=== PATIENT | female | born 1960 | race Two or more races ===

== ENCOUNTER 2017-03-28 08:35 | Emergency (ER) | payer MEDICAID ==
[~2017-03-28] VITALS: Ht 167.6 cm; Wt 149.7 kg
[2017-03-28 08:59] VITALS: BP 139/102
[2017-03-28] MEDS ORDERED: KETOROLAC TROMETH 60MG/2ML VIAL IM ONE (09:15)
== END 2017-03-28 09:59 | disposition home or self-care (01) ==
LOC: ER 08:35
DX: M17.11 Unilateral primary osteoarthritis, right knee (principal); E66.01 Morbid (severe) obesity due to excess calories; Z68.43 Body mass index [BMI] 50.0-59.9, adult; E11.9 Type 2 diabetes mellitus without complications; I10 Essential (primary) hypertension; Z88.0 Allergy status to penicillin
CPT/HCPCS: 96372; 99283; J1885

== ENCOUNTER 2017-11-07 19:22 | Emergency (ER) | payer MEDICAID ==
[~2017-11-07] VITALS: Ht 167.6 cm; Wt 136.1 kg
[2017-11-07 19:30] VITALS: BP 120/72
[2017-11-07] MEDS ORDERED: KETOROLAC TROMETH 60MG/2ML VIAL IM ONE (22:15)
[2017-11-07] MEDS ORDERED: GABAPENTIN 100 MG CAP PO ONE (23:30)
[2017-11-07] MEDS ORDERED: ACETAMINOPHEN/CODEINE#3 (300/30mg) TAB PO ONE (23:30)
== END 2017-11-07 23:25 | disposition home or self-care (01) ==
LOC: ER 19:22
DX: S93.401A Sprain of unspecified ligament of right ankle, initial encounter (principal); S83.92XA Sprain of unspecified site of left knee, initial encounter; S83.91XA Sprain of unspecified site of right knee, initial encounter; E11.9 Type 2 diabetes mellitus without complications; I10 Essential (primary) hypertension; Z88.0 Allergy status to penicillin; W19.XXXA Unspecified fall, initial encounter; Y93.01 Activity, walking, marching and hiking; Y92.89 Other specified places as the place of occurrence of the external cause; Y99.8 Other external cause status
CPT/HCPCS: 73562; 73610; 73630; 96372; 99284; J1885

== ENCOUNTER 2018-08-05 20:39 | Emergency (ER) | payer MEDICAID ==
[~2018-08-05] VITALS: Ht 167.6 cm; Wt 169.2 kg
[2018-08-05 21:19] VITALS: BP 129/93
[2018-08-05 21:57] LABS: Basophils # (auto) 0 uL; Basophils % (auto) 0.4 % (0.0-2.0); Eosinophils # (auto) 0.1 uL; Eosinophils % (auto) 2.3 % (0.0-7.0); Hemoglobin 14.8 g/dL (12.2-16.2); Lymphocytes # (auto) 1.7 uL; Lymphocytes % (auto) 26.9 % (10.0-50.0); Mean Corpuscular Hemoglobin 29.4 pg (28.0-32.0); Mean Corpuscular Hgb Conc. 34.4 g/dL (32.0-36.0); Mean Corpuscular Volume 85.5 fL (80.0-100.0); Monocytes # (auto) 0.5 uL; Monocytes % (auto) 8.9 % (0.0-12.0); Neutrophils # (auto) 3.8 uL; Neutrophils % (auto) 61.5 % (37.0-80.0); Nucleated Red Blood Cells % 0.1 %; Platelet Count (auto) 122 10^3/uL (140-450); Red Blood Cells 5.03 10^6/uL (4.0-5.20); Red Cell Distribution Width 15.6 % (11.8-14.3); White Blood Cell 6.2 10^3/uL (4.4-10.8)
[2018-08-05 22:10] LABS: Albumin 3.4 g/dL (3.4-5.0); BUN/Creatinine Ratio 13.8; Calcium 9.2 mg/dL (8.5-10.1); Potassium 3.3 mmol/L (3.5-5.1)
[2018-08-05 22:14] LABS: Bilirubin, Total 0.6 mg/dL (0.2-1.0); Total Protein 7.2 g/dL (6.4-8.2)
== END 2018-08-06 00:29 | disposition left against medical advice (07) ==
LOC: ER 20:41
DX: R73.9 Hyperglycemia, unspecified (principal); Z53.21 Procedure and treatment not carried out due to patient leaving prior to being seen by health care provider
CPT/HCPCS: 36415; 80053; 85025

== ENCOUNTER 2018-08-07 16:54 | Emergency (ER) | payer MEDICAID ==
[~2018-08-07] VITALS: Ht 167.6 cm; Wt 166.0 kg
[2018-08-07 17:00] VITALS: BP 140/89
== END 2018-08-08 00:47 | disposition left against medical advice (07) ==
LOC: ER 16:58
DX: R73.9 Hyperglycemia, unspecified (principal); Z53.21 Procedure and treatment not carried out due to patient leaving prior to being seen by health care provider
CPT/HCPCS: 82962

== ENCOUNTER 2018-08-14 12:31 | Emergency (ER) | payer MEDICAID ==
[~2018-08-14] VITALS: Ht 167.6 cm; Wt 300.3 kg
[2018-08-14] MEDS: SODIUM CHLORIDE 0.9% 1,000 ML IV ONE ×5 (13:25→16:48)
[2018-08-14 13:26] LABS: Basophils # (auto) 0 uL; Eosinophils # (auto) 0.1 uL; Eosinophils % (auto) 2.8 % (0.0-7.0); Hematocrit 40.8 % (36.0-46.0); Lymphocytes # (auto) 1.2 uL; Lymphocytes % (auto) 25.7 % (10.0-50.0); Mean Corpuscular Hemoglobin 29.5 pg (28.0-32.0); Mean Corpuscular Hgb Conc. 34.2 g/dL (32.0-36.0); Mean Corpuscular Volume 86.2 fL (80.0-100.0); Monocytes # (auto) 0.4 uL; Monocytes % (auto) 9.2 % (0.0-12.0); Neutrophils # (auto) 2.9 uL; Neutrophils % (auto) 61.3 % (37.0-80.0); Nucleated Red Blood Cells % 0.1 %; Platelet Count (auto) 141 10^3/uL (140-450); Red Blood Cells 4.74 10^6/uL (4.0-5.20); Red Cell Distribution Width 15.8 % (11.8-14.3); White Blood Cell 4.7 10^3/uL (4.4-10.8)
[2018-08-14 13:42] LABS: Albumin 3.3 g/dL (3.4-5.0); BUN/Creatinine Ratio 15.2; Calcium 9.7 mg/dL (8.5-10.1)
[2018-08-14 13:44] LABS: Bilirubin, Total 0.9 mg/dL (0.2-1.0)
[2018-08-14] MEDS: POTASSIUM EFFERVESENT TAB 25 MEQ PO ONE (15:58)
[2018-08-14 17:01] LABS: Urine Bacteria NONE SEEN /hpf (None Seen); Urine Blood Negative /uL (Negative); Urine Specific Gravity 1.008 (1.001-1.035); Urine WBC <1 /hpf (0 - 5)
[2018-08-14 17:10] LABS: Magnesium 1.6 mg/dL (1.6-2.6)
[2018-08-14 19:24] LABS: BUN/Creatinine Ratio 16.1; Calcium 9.5 mg/dL (8.5-10.1); Potassium 3.3 mmol/L (3.5-5.1)
[2018-08-14] MEDS: POTASSIUM CHL 20 Meq TABLET PO ONE (20:06)
[2018-08-14] MEDS: InsuLIN REG 1unit/0.01ml Soln (100units/ml) IV ONE (20:06)
[2018-08-14 21:49] LABS: Albumin 3.5 g/dL (3.4-5.0); Calcium 9.4 mg/dL (8.5-10.1); Potassium 3.3 mmol/L (3.5-5.1)
[2018-08-14 21:52] LABS: BUN/Creatinine Ratio 16.7; Bilirubin, Total 0.6 mg/dL (0.2-1.0); Total Protein 6.9 g/dL (6.4-8.2)
[2018-08-15 05:52] VITALS: BP 112/65
== END 2018-08-15 05:48 | disposition home or self-care (01) ==
LOC: ER 12:31
DX: E11.65 Type 2 diabetes mellitus with hyperglycemia (principal); E86.0 Dehydration; E87.6 Hypokalemia; E66.01 Morbid (severe) obesity due to excess calories; E05.90 Thyrotoxicosis, unspecified without thyrotoxic crisis or storm; M19.90 Unspecified osteoarthritis, unspecified site; E78.5 Hyperlipidemia, unspecified; I10 Essential (primary) hypertension; E07.9 Disorder of thyroid, unspecified; Z68.41 Body mass index [BMI] 40.0-44.9, adult
CPT/HCPCS: 36415; 80048; 80053; 81001; 82962; 83690; 83735; 84443; 85025; 96361; 96374; 99283; J1815; J7030

== ENCOUNTER 2020-05-23 18:09 | Inpatient (IN) | payer MEDICAID ==
[~2020-05-23] VITALS: Ht 167.6 cm; Wt 165.3 kg
[2020-05-23 19:28] LABS: Basophils # (auto) 0 10 ^3/uL (0-0.2); Basophils % (auto) 0.1 % (0.0-2.0); Eosinophils # (auto) 0 10 ^3/uL (0-0.8); Hematocrit 42.3 % (36.0-46.0); Hemoglobin 14.3 g/dL (12.2-16.2); Lymphocytes # (auto) 0.9 10 ^3/uL (0.4-5.4); Lymphocytes % (auto) 15.1 % (10.0-50.0); Mean Corpuscular Hemoglobin 29.9 pg (28.0-32.0); Mean Corpuscular Hgb Conc. 33.7 g/dL (32.0-36.0); Monocytes # (auto) 0.5 10 ^3/uL (0-1.3); Monocytes % (auto) 9.5 % (0.0-12.0); Neutrophils # (auto) 4.2 10 ^3/uL (1.6-8.6); Neutrophils % (auto) 75.3 % (37.0-80.0); Nucleated Red Blood Cells % 0.5 %; Platelet Count (auto) 163 10^3/uL (140-450); Red Blood Cells 4.76 10^6/uL (4.0-5.20); Red Cell Distribution Width 15.4 % (11.8-14.3); White Blood Cell 5.7 10^3/uL (4.4-10.8)
[2020-05-23 19:51] LABS: Albumin 3.3 g/dL (3.4-5.0); Anion Gap 12 (5-15); Blood Urea Nitrogen 62 mg/dL (7-18); Calcium 9.2 mg/dL (8.5-10.1); Carbon Dioxide 24 mmol/L (21-32); Chloride 96 mmol/L (98-107); Glucose 212 mg/dL (74-106); Magnesium 2.3 mg/dL (1.6-2.6); Potassium 4.5 mmol/L (3.5-5.1); Sodium 132 mmol/L (136-145)
[2020-05-23 19:58] LABS: Alanine Aminotransferase 95 U/L (13-56); Alkaline Phosphatase 53 U/L (45-117); Aspartate Aminotransferase 236 U/L (15-37); BUN/Creatinine Ratio 15.2; Bilirubin, Total 0.9 mg/dL (0.2-1.0); GFR African American 15 mL/min; GFR Non-African American 12 mL/min; Total Protein 8.2 g/dL (6.4-8.2)
[2020-05-23] MEDS ORDERED: SODIUM CHLORIDE 0.9% 500 ML IV ONE ×2 (21:30→23:15)
[2020-05-23] MEDS ORDERED: AZITHROMYCIN 500MG/ 250ML 250 ML IV ONE (21:45)
[2020-05-23] MEDS ORDERED: DexAMETHasone SOD PHOS 10MG/1ML VIAL INJ IV ONE (21:45)
[2020-05-23 23:11] LABS: Urine Amorphous Crystal FEW /hpf (None Seen); Urine Bacteria FEW /hpf (None Seen); Urine Blood Negative /uL (Negative); Urine Hyaline Cast MOD /lpf (0 - 2); Urine Mucus FEW (None Seen); Urine Specific Gravity 1.016 (1.001-1.035); Urine WBC 1 /hpf (0 - 5)
[2020-05-24] VITALS (44 sets, daily range): BP systolic 62–188; BP diastolic 30–96
[2020-05-24] MEDS ORDERED: DEXTROSE (50%) 50ML SYRG IV PRN
[2020-05-24] MEDS ORDERED: ALBUTEROL SULF HFA 90MCG INH 200DOSE IN PRN
[2020-05-24] MEDS ORDERED: NITROGLYCERIN 0.4 MG SL TAB SL PRN
[2020-05-24] MEDS ORDERED: MORPHINE SULF INJ 2 MG/ML SYRINGE 1ML IV PRN
[2020-05-24] MEDS ORDERED: ACETAMINOPHEN 500 MG TAB PO PRN
[2020-05-24] MEDS ORDERED: DOCUSATE SOD 100 MG CAP PO PRN
[2020-05-24] MEDS ORDERED: ONDANSETRON HCL 4 MG/2 ML VIAL IV PRN
[2020-05-24 01:01] LABS: Albumin 3.1 g/dL (3.4-5.0); BUN/Creatinine Ratio 14.6; Calcium 8.9 mg/dL (8.5-10.1); Magnesium 2.1 mg/dL (1.6-2.6)
[2020-05-24 01:13] LABS: Bilirubin, Total 0.9 mg/dL (0.2-1.0); Total Protein 7.8 g/dL (6.4-8.2)
--- NOTE | 2020-05-24 02:45 | NUR ---
pt got to floor, confused, on 15L NRB sating to low 80"s to low 90's
--- NOTE | 2020-05-24 03:30 | NUR ---
cannot obtain admission questions, pt is confused.
--- NOTE | 2020-05-24 03:45 | NUR ---
paged Rt for breathing txt
--- NOTE | 2020-05-24 05:07 | NUR ---
spoke with hospitalist regarding pt's breathing txt bec inhaler prn not available this time and anxiety med, new order received for breathing txt but no order for anxiety.
[2020-05-24] MEDS: SODIUM CHLOR 0.9% PF (SALINE LOCK) 10ML VIAL/SYR IV SCH ×3 (05:13→21:14)
[2020-05-24] MEDS ORDERED: ALBUTEROL SULF 2 MG/5ML ORAL SYRUP PO PRN (05:15)
--- NOTE | 2020-05-24 05:39 | NUR ---
paged RT to assess the pt's breathing and recommendation
[2020-05-24] MEDS: ACCU-CHEK COMFORT CURVE STRIP VI SCH ×4 (06:16→21:18)
[2020-05-24] MEDS: InsuLIN REG 1unit/0.01ml Soln (100units/ml) SC SCH ×3 (06:17→19:59)
--- NOTE | 2020-05-24 06:43 | NUR ---
RT at bedside placing pt on BiPAP
--- NOTE | 2020-05-24 08:45 | NUR ---
RT at bedside. Patient continuing on bipap, 02 at 90%
[2020-05-24] MEDS: MULTIPLE VITAMIN TAB PO SCH (10:00)
[2020-05-24] MEDS: ASCORBIC ACID 1,000 MG TAB PO SCH (10:00)
[2020-05-24] MEDS: CHOLECALCIFEROL (VITD3) 2,000 UNIT CAP PO SCH (10:00)
[2020-05-24] MEDS ORDERED: BUDESONIDE (INHALATION) 180 MCG IH IN SCH (10:00)
[2020-05-24] MEDS ORDERED: DexAMETHasone SOD PHOS 10MG/1ML VIAL INJ IV SCH (10:00)
[2020-05-24] MEDS ORDERED: AZITHROMYCIN 500MG/D5WorNS 250ml IV SCH (10:00)
--- NOTE | 2020-05-24 10:15 | NUR ---
Patients , Gideon, called. Update provided on patient status
[2020-05-24 10:43] LABS: Basophils # (auto) 0 10 ^3/uL (0-0.2); Basophils % (auto) 0.1 % (0.0-2.0); Eosinophils # (auto) 0 10 ^3/uL (0-0.8); Eosinophils % (auto) 0.1 % (0.0-7.0); Hematocrit 38.1 % (36.0-46.0); Hemoglobin 12.9 g/dL (12.2-16.2); Lymphocytes # (auto) 0.5 10 ^3/uL (0.4-5.4); Lymphocytes % (auto) 8.2 % (10.0-50.0); Mean Corpuscular Hemoglobin 30.2 pg (28.0-32.0); Mean Corpuscular Volume 88.7 fL (80.0-100.0); Monocytes # (auto) 0.3 10 ^3/uL (0-1.3); Monocytes % (auto) 5.3 % (0.0-12.0); Neutrophils # (auto) 5.5 10 ^3/uL (1.6-8.6); Neutrophils % (auto) 86.3 % (37.0-80.0); Nucleated Red Blood Cells % 0.1 %; Platelet Count (auto) 159 10^3/uL (140-450); Red Blood Cells 4.29 10^6/uL (4.0-5.20); Red Cell Distribution Width 15.5 % (11.8-14.3); White Blood Cell 6.3 10^3/uL (4.4-10.8)
[2020-05-24] MEDS: DOXYCYCLINE 100MG/250ML 250 ML IV SCH ×2 (10:44→21:15)
[2020-05-24] MEDS: HEPARIN SODIUM (PORCINE) 5000 UNITS/ML 1ML VIAL SC SCH ×2 (10:44→21:15)
[2020-05-24] MEDS: DexAMETHasone SOD PHOS 10MG/1ML VIAL INJ IV SCH (10:44)
[2020-05-24 10:57] LABS: Albumin 2.9 g/dL (3.4-5.0); Calcium 8.5 mg/dL (8.5-10.1)
[2020-05-24 11:00] LABS: BUN/Creatinine Ratio 14.5; Bilirubin, Total 0.8 mg/dL (0.2-1.0); Total Protein 7.6 g/dL (6.4-8.2)
--- NOTE | 2020-05-24 12:00 | NUR ---
Dr Shah bedside
[2020-05-24] MEDS ORDERED: SUCCINYLCHOLINE CHLORIDE 20 MG/ML 10ML VIAL IV ONE ×2 (12:15→12:20)
[2020-05-24] MEDS ORDERED: ETOMIDATE (2MG/ML) 20ML VIAL IV ONE ×2 (12:15→12:19)
[2020-05-24] MEDS ORDERED: MIDAZOLAM DRIP 50 mg/50mL 50 ML IV ONE (12:19)
[2020-05-24] MEDS ORDERED: PROPOFOL 100 ML IV ONE (12:19)
--- NOTE | 2020-05-24 12:30 | NUR ---
Report given to JONAH Wills in [place]
--- NOTE | 2020-05-24 14:00 | NUR ---
Patient moved to room 262. Patient did not have any belongings to be moved with her.
--- NOTE | 2020-05-24 14:00 | NUR ---
US NURSE AT BEDSIDE
--- NOTE | 2020-05-24 14:00 | NUR ---
Admit to ICU from [facility]/PATIENT INTUBATED AFTER ADMIT TO UNIT Following covid precautions, NICKO FLAHERTY admitted to ICU via gurney on cardiac cath lab technologist, being bagged by Respiratory Therapist. Patient transferred to bed, connected to ICU monitoring and weighed by [facility]. Hospitalist Dr. Shah and Dr. Mckay awaiting patients arrival to unit for intubation, Respiratory Therapist at bedside. Patient/Family aware of need for intubation and possible sedation while on ventilator. Patient intubated by Dr. Mckay with a size 8.0, 21 at the lip. Patient restless soon after intubation, orders for propofol, versed and fentanyl received and infuse at maximum rate. Dr. Estrella, anesthesiologist at bedside to attempt arterial line with no success after multiple attempts, orders for Rocuronium [address] Estrella by Tj, charge nurse. Dr. Mckay placed central line to right IJ, dressing placed, area clean dry and intact. ETT placement and central line verified by portable CXR - OGT placed. Patient repositioned for comfort, rober and catheter care performed. Patient repositioned for comfort, richey catheter draining dark/sediment/cloudy urine to gravity. Skin intact with the exception of left abdominal fold redness/wet and foul - area cleansed with soap and water, pat dry, pictures taken, wound care form signed and dated, intra-dry applied. This nurse remained at bedside to monitor and titrate medications per protocol and as tolerated by patient, unable to document in patient chart due to patient unstable and covid precautions. Fall, safety and covid precautions in place, will continue to monitor. Medication given as follows: Etomidate 30 mg Succinate not administered but wasted due to covid room Rocuronium 50 mg
[2020-05-24] MEDS: SODIUM CHLORIDE 0.9% 1,000 ML IV SCH ×2 (14:15→21:18)
[2020-05-24] MEDS ORDERED: fentaNYL Drip 2500mCg/250mlNS 250 ML IV ONE (14:24)
[2020-05-24] MEDS ORDERED: ROCURONIUM 10MG/ML 10ML VIAL IV ONE (14:25)
[2020-05-24] MEDS ORDERED: NOREPINEPHRINE 8 MG/250ML KIT 250 ML IV ONE ×2 (14:52→14:54)
[2020-05-24] MEDS ORDERED: SODIUM CHLORIDE 0.9% IV ONE (15:00)
[2020-05-24] MEDS: MIDAZOLAM DRIP 50 mg/50mL 50 ML IV SCH ×3 (16:20→23:00)
[2020-05-24] MEDS: PROPOFOL 100 ML IV SCH ×3 (16:33→22:30)
[2020-05-24] MEDS ORDERED: cefTRIAXone 1GM/50ML D5W 50 ML IV ONE (16:45)
--- NOTE | 2020-05-24 16:51 | NUR ---
CONTACT HOSPITALIST/ATTEMPT TO CONTACT FAMILY SPOKE WITH DR NICOLE, UPDATE ON PATIENT'S STATUS; DECREASE BLOOD PRESSURE AND MAX LEVOPHED, LOW OXYGEN SATURATION AND NEED TO STOP FENTANYL AND PROPOFOL, PATIENT CURRENTLY MAX RATE OF VERSED ONLY FOR SEDATION. ORDERS FOR PHENYLEPHRINE RECEIVED IF NEEDED AND DR NICOLE SPOKE WITH Jose FROST WHO UPDATED HIM ON ABG. ATTEMPT TO CONTACT FAMILY PER DR NICOLE TO PROVIDE UPDATE WAS UNSUCCESSFUL. ALL NUMBERS VERIFIED WITH RIGOBERTO, FORMER RN. NO ANSWER, UNABLE TO LEAVE MESSAGE. WILL CONTINUE TO ATTEMPT CALLING FAMILY AND NOTIFY DR NICOLE OF NUMBER. RADHA - DAUGHTER DORIAN - SPOUSE
[2020-05-24] MEDS: PHENYLEPHRINE IV 250 ML IV SCH (17:00)
--- NOTE | 2020-05-24 17:04 | NUR ---
CALL RECEIVED FROM SON IN LAW HALIMA REQUESTING UPDATE AFTER PASSWORD VERIFICATION. HALIMA WAS NOTIFIED THAT AND THIS NURSE WAS ATTEMPTING TO REACH SPOUSE DORIAN WITH NO SUCCESS. HALIMA STATED HE WOULD REACH OUT TO DORIAN AND HAVE HIM CALL THIS NURSE.
[2020-05-24] MEDS: fentaNYL Drip 2500mCg/250mlNS 250 ML IV SCH (18:00)
--- NOTE | 2020-05-24 18:20 | NUR ---
CALL RECEIVED FROM FAMILY PHONE CALL RECEIVED FROM PATIENT "NIECE" AND REQUESTING UPDATE INFORMATION AFTER PASSWORD VERIFICATION. 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 ONCE AGAIN, INFORMATION WAS PROVIDED TO HER, SHE REPORTED TO THIS NURSE THAT FAMILY WOULD LIKE PATIENT TO BE TRANSFERRED AND THAT THEY WANT EVERYTHING DONE "TO THE FULLEST EXTENT". THIS NURSE NOTIFIED HER THAT THE INFORMATION WILL BE RELAYED TO ONCOMING RN TO NOTIFY MD OF FAMILY REQUEST FOR TRANSFER.
--- NOTE | 2020-05-24 19:45 | NUR ---
Opening Shift Note: Patient was a transfer from telemetry unit on 05/24/20 related to declining respiratory status that lead to intubation. Neuro: bilateral pupils are 4 mm/sluggis; flaccid extremities; no eye opening; hypoactive cough/gag. Cardio: SR 60s-80s with 1st degree AVB/BBB; SBPs 90s-180s; pulses are all palpable; generalized edema noted. Resp: ET size 8.0/21 @ lip; Settings: AC rate 18, vT 500, FiO2 100%, PEEP 12; anterior lung sounds are diminished throughout with occasional scattered wheezes; ET secretions are moderate/thick/bloody/rust; oral secretions have blood clots. GI: OGT clamped; hypoactive BS; last BM per EMR was 05/23/20. : richey catheter inserted on 05/23/20 for strict I/O: urine is light nicholas/cloudy/sediment. Skin: MASD to abdominal fold: interdry in place. IVs: left AC 18 IID inserted on 05/23/20; left hand 20 g IID inserted on 05/23/20; RUE 20 g IID inserted on 05/24/20; right IJ TLC inserted on 05/24/20 running Versed @ 15, Levo @ 16, Propofol @ 5, NS bolus of 500 ml is running. New orders received from Dr. Shah for 1 liter of 1/2 NS with 1 amp of sodium bicarbonate to run at 75 ml/hr and CVP monitoring. Pending urine sodium/protein/creatinine collection, dietary consultation, WC consult, and Pulmonary consultation. Pending CBC/CMP/Ferritin/CXR for AM. Will continue to round and perform oral care prn. Patient is too hemodynamically unstable for turning at this time. Will reassess the ability for Q2H turns. Positive COVID status with all precautions in place.
--- NOTE | 2020-05-24 19:50 | NUR ---
Vent changes: After collection of ABG, RT notified Dr. Shah. Rate was changed from 18 to 22 and will repeat ABG in one hour.
--- NOTE | 2020-05-24 20:06 | NUR ---
CALL RECEIVED FROM HOSPITALIST DR NICOLE RETURNING R.T. CALL. THIS NURSE UPDATED ON CONVERSATION WITH PATIENT'S NIECE, VERBALIZED UNDERSTANDING AND WILL REASSESS, CONTACT SPOUSE TOMORROW TO UPDATE. ORDERED 1 LITER 1/2 NS WITH ONE AMP SODIUM BICARB TO RUN AT 75 MLS/HR AND CVP MONITORING, ORDERS ENTERED AND WILL BE ENDORSED TO JOINTER SUBMARINE CABLE RN. CALL TRANSFERRED TO R.T.
[2020-05-24] MEDS ORDERED: SODIUM BICARB 50ML SYR 50 ML in SODIUM CHLORIDE 0.9% 1,000 ML IV ONE (20:15)
--- NOTE | 2020-05-24 20:16 | NUR ---
Family updated on pt status Family of NICKO FLAHERTY updated on patient's status and condition after password verification. All questions and concerns addressed. Daughter Lucila verbalized understanding and notified this nurse that Dr. Shah approved them to come and see patient tomorrow morning at 0830. This nurse notified Lucila to call day shift RN first before coming to hospital as the nurse needs to notify ICU Director. Lucila verbalized understanding. Information relayed to shift stacker RN.
[2020-05-24] MEDS: NOREPINEPHRINE 8 MG/250ML KIT 250 ML IV SCH (20:54)
--- NOTE | 2020-05-24 21:55 | NUR ---
Vent changes: After ABG results, RT notified Dr. Shah. Vent changes include transition to PC with a pressure of 20, rate 22, FiO2 100%, PEEP 12. RT to draw another ABG in one hour post vent changes and discuss results with tube station attendant hospitalist.
[2020-05-24] MEDS ORDERED: InsuLIN REG 1unit/0.01ml Soln (100units/ml) SC SCH (22:00)
[2020-05-24] MEDS ORDERED: SODIUM BICARBONATE 8.4 % INJ 50ML VIAL IV ONE ×2 (23:19→23:50)
--- NOTE | 2020-05-24 23:30 | NUR ---
Vent changes: After ABG results, RT discussed with information receptionist hospitalist, Mary Tello. Vent changes included increasing the pressure to 22.
[2020-05-25] VITALS (84 sets, daily range): BP systolic 95–143; BP diastolic 51–86
--- NOTE | 2020-05-25 00:38 | NUR ---
Vent changes: Per RT, PEEP increased to 14.
[2020-05-25] MEDS: PROPOFOL 100 ML IV SCH ×9 (01:00→21:00)
[2020-05-25] MEDS: PHENYLEPHRINE IV 250 ML IV SCH ×4 (01:20→22:44)
[2020-05-25] MEDS: fentaNYL Drip 2500mCg/250mlNS 250 ML IV SCH (01:30)
--- NOTE | 2020-05-25 01:30 | NUR ---
Vent changes: Per latest ABG results, vent changes include increasing the pressure to 24, keep rate of 22, decrease PEEP to 12, and keep FiO2 @ 100%.
[2020-05-25] MEDS: MIDAZOLAM DRIP 50 mg/50mL 50 ML IV SCH ×5 (03:15→20:06)
[2020-05-25] MEDS: SODIUM CHLOR 0.9% PF (SALINE LOCK) 10ML VIAL/SYR IV SCH ×3 (06:00→20:04)
[2020-05-25] MEDS: InsuLIN REG 1unit/0.01ml Soln (100units/ml) SC SCH ×4 (06:26→22:00)
[2020-05-25] MEDS: ACCU-CHEK COMFORT CURVE STRIP VI SCH ×4 (06:27→22:00)
--- NOTE | 2020-05-25 06:33 | NUR ---
Unable to turn patient all night related to unstable hemodynamic status. Patient was saturating in the 70s-80s on the FiO2 100%. Slight movements would cause saturations to rapidly decrease. Patient remained in the supine position.
--- NOTE | 2020-05-25 06:41 | NUR ---
Urine creatinine/protein specimen sent to lab via [employer] system.
[2020-05-25 07:07] LABS: Basophils # (auto) 0 10 ^3/uL (0-0.2); Basophils % (auto) 0.4 % (0.0-2.0); Eosinophils # (auto) 0 10 ^3/uL (0-0.8); Hematocrit 38.5 % (36.0-46.0); Hemoglobin 13.1 g/dL (12.2-16.2); Lymphocytes # (auto) 0.5 10 ^3/uL (0.4-5.4); Lymphocytes % (auto) 7.1 % (10.0-50.0); Mean Corpuscular Hemoglobin 30.4 pg (28.0-32.0); Mean Corpuscular Hgb Conc. 34.1 g/dL (32.0-36.0); Monocytes # (auto) 0.4 10 ^3/uL (0-1.3); Monocytes % (auto) 5.5 % (0.0-12.0); Neutrophils # (auto) 6.6 10 ^3/uL (1.6-8.6); Nucleated Red Blood Cells % 0.3 %; Platelet Count (auto) 253 10^3/uL (140-450); Red Blood Cells 4.33 10^6/uL (4.0-5.20); Red Cell Distribution Width 15.6 % (11.8-14.3); White Blood Cell 7.6 10^3/uL (4.4-10.8)
[2020-05-25 07:37] LABS: Potassium 4.7 mmol/L (3.5-5.1)
[2020-05-25 07:45] LABS: Albumin 2.7 g/dL (3.4-5.0); BUN/Creatinine Ratio 16.6; Bilirubin, Total 1.1 mg/dL (0.2-1.0); Calcium 8.1 mg/dL (8.5-10.1); Total Protein 7.8 g/dL (6.4-8.2)
[2020-05-25 07:49] LABS: Protein, Urine 101.2 mg/dL (0.0-11.9)
[2020-05-25] MEDS: cefTRIAXone 1GM/50ML D5W 50 ML IV SCH (08:42)
[2020-05-25] MEDS: DexAMETHasone SOD PHOS 10MG/1ML VIAL INJ IV SCH (08:43)
[2020-05-25] MEDS: DOXYCYCLINE 100MG/250ML 250 ML IV SCH ×2 (08:43→20:05)
[2020-05-25] MEDS: MULTIPLE VITAMIN TAB PO SCH (08:43)
[2020-05-25] MEDS: PANTOPRAZOLE 40 MG/10 ML VIAL INJ IV SCH (08:43)
[2020-05-25] MEDS: CHOLECALCIFEROL (VITD3) 2,000 UNIT CAP PO SCH (08:44)
[2020-05-25] MEDS: ASCORBIC ACID 1,000 MG TAB PO SCH (08:45)
--- NOTE | 2020-05-25 09:10 | NUR ---
CRITICAL BUN INFORMED MD BAUTISTA OF MORNING BUN LEVEL. NO NEW ORDERS.
[2020-05-25] MEDS: HEPARIN SODIUM (PORCINE) 5000 UNITS/ML 1ML VIAL SC SCH ×2 (09:19→22:00)
--- NOTE | 2020-05-25 11:00 | NUR ---
PT REPOSITIONED BACK AREA INTACT. NO REDNESS. PILLOWS PLACED TO OFFLOAD WEIGHT. NO DISTRESS, POX 95%.
--- NOTE | 2020-05-25 13:12 | NUR ---
FIO2 TITRATED TO 95% TO MAINTAIN O2 SATS >92%. PT TOLERATING WELL.
--- NOTE | 2020-05-25 14:08 | NUR ---
Nutrition Consult Consider Glucerna 1.2 at a goal rate of 30 ml/hr at current rate of propfol Est energy needs 7403-5333 kcal (11-13 kcal/kg BW 166.1kg) Est protein needs 59-77g (1-1.3g/kg IBW 59kg) Will monitor and reassess prn. Addendum: 05/25/20 at [address] Amended: Links added.
[2020-05-25] MEDS: NOREPINEPHRINE 8 MG/250ML KIT 250 ML IV SCH (15:00)
--- NOTE | 2020-05-25 15:00 | NUR ---
PT ROUNDS NO DISTRESS NOTED. SUCTIONED ETT, NO SECRETIONS. BREATHING REMAINS THE SAME. ALL MONITOR ALARMS IN PLACE. BED LOCKED FOR SAFETY.
[2020-05-25] MEDS ORDERED: SODIUM BICARBONATE 50ML VIAL 50 ML in SOD CHL 0.45% 1,000 ML IV ONE (15:45)
[2020-05-25] MEDS ORDERED: DEXTROSE (50%) 50ML SYRG IV PRN (18:30)
--- NOTE | 2020-05-25 18:30 | NUR ---
HOSPITALIST PAGED INFORMED OF INCREASING SUGARS. SPOKE WITH QUANTITATIVE RESEARCHER TRAMAINE, ORDERS RECEIVED FOR AGGRESSIVE SCALE AND 10 UNITS LANTUS DAILY.
[2020-05-25] MEDS: BUDESONIDE (INHALATION) 0.5 MG/2 ML NEB NEB SCH (18:38)
--- NOTE | 2020-05-25 19:30 | NUR ---
Opening Shift Note: Patient was a transfer from telemetry unit on 05/24/20 related to declining respiratory status that lead to intubation. Neuro: bilateral pupils are 4 mm/sluggish; flaccid extremities; no eye opening; hypoactive cough/gag. Cardio: SR 60s-80s with 1st degree AVB/BBB; SBPs 90s-180s; pulses are all palpable; generalized edema noted. Resp: ET size 8.0/21 @ lip; Settings: PC rate 22, pressure 24, FiO2 100%, PEEP 14; anterior lung sounds are diminished throughout; ET secretions are none; oral secretions are thick/rust. GI: OGT clamped; hypoactive BS; last BM per EMR was 05/23/20. : richey catheter inserted on 05/23/20 for strict I/O: urine is light nicholas/cloudy/sediment. Skin: MASD to abdominal fold: interdry in place. IVs: left AC 18 IID inserted on 05/23/20; left hand 20 g IID inserted on 05/23/20; RUE 20 g IID inserted on 05/24/20; right IJ TLC inserted on 05/24/20 running Versed @ 13, Levo @ 2, Propofol @ 45; 0.45% NS with 1 amp of sodium bicarbonate @ 50 ml/hr x1 liter; fentanyl @ 100. CVP monitorin-8. Pending WC consult and Pulmonary consultation. Pending BMP/CXR/ABG for AM. Will continue to round and perform oral care prn. Patient is too hemodynamically unstable for turning at this time. Will reassess the ability for Q2H turns. Positive COVID status with all precautions in place.
[2020-05-25] MEDS: ENOXAPARIN SOD 150 MG/1 ML SYRINGE SC SCH (22:00)
[2020-05-26] VITALS (91 sets, daily range): BP systolic 89–158; BP diastolic 43–79
[2020-05-26] MEDS: fentaNYL Drip 2500mCg/250mlNS 250 ML IV SCH ×2 (01:15→09:49)
[2020-05-26] MEDS: MIDAZOLAM DRIP 50 mg/50mL 50 ML IV SCH ×3 (03:00→19:41)
[2020-05-26] MEDS: PROPOFOL 100 ML IV SCH ×2 (03:48→05:34)
[2020-05-26] MEDS: InsuLIN REG 1unit/0.01ml Soln (100units/ml) SC SCH ×4 (05:28→21:29)
[2020-05-26] MEDS: SODIUM CHLOR 0.9% PF (SALINE LOCK) 10ML VIAL/SYR IV SCH ×3 (05:28→21:28)
[2020-05-26] MEDS: ACCU-CHEK COMFORT CURVE STRIP VI SCH ×4 (05:33→21:28)
[2020-05-26 05:43] LABS: Calcium 7.8 mg/dL (8.5-10.1); Potassium 4.7 mmol/L (3.5-5.1)
[2020-05-26 05:46] LABS: BUN/Creatinine Ratio 22.3
[2020-05-26] MEDS ORDERED: REMDESIVIR PER PHARMACY 0 ML IV SCH (08:45)
--- NOTE | 2020-05-26 09:00 | NUR ---
updated Dr. Shah updated on patients status via phone. New order in place. See md notes/orders.
[2020-05-26] MEDS: cefTRIAXone 1GM/50ML D5W 50 ML IV SCH (09:45)
[2020-05-26] MEDS: ASCORBIC ACID 1,000 MG TAB PO SCH (09:50)
[2020-05-26] MEDS: DOXYCYCLINE 100MG/250ML 250 ML IV SCH ×2 (09:50→21:28)
[2020-05-26] MEDS: MULTIPLE VITAMIN TAB PO SCH (09:50)
[2020-05-26] MEDS: DexAMETHasone SOD PHOS 10MG/1ML VIAL INJ IV SCH (09:50)
[2020-05-26] MEDS: PANTOPRAZOLE 40 MG/10 ML VIAL INJ IV SCH (09:50)
[2020-05-26] MEDS: CHOLECALCIFEROL (VITD3) 2,000 UNIT CAP PO SCH (09:50)
[2020-05-26] MEDS: INSULIN LANTUS (GLARGINE) 1 /0.01ml (100units/ml) SC SCH (09:51)
[2020-05-26] MEDS: ENOXAPARIN SOD 150 MG/1 ML SYRINGE SC SCH (09:51)
[2020-05-26] MEDS ORDERED: INSULIN LANTUS (GLARGINE) 1 /0.01ml (100units/ml) SC SCH (10:00)
--- NOTE | 2020-05-26 10:00 | NUR ---
*Unable to turn patient related to unstable hemodynamic status. Patient on PC 100% PEEP of 10 with small increase in pneumothorax from this a.m CXR. . Pox on 100% fi02 is 87-88%. Small pillow placed to right side, not significant enough to assess sacrum/ backside. Addendum: 05/26/20 at 1400 by Nataly Galarza RN *incorrect patient
[2020-05-26 10:31] LABS: Basophils # (auto) 0.1 10 ^3/uL (0-0.2); Basophils % (auto) 0.9 % (0.0-2.0); Eosinophils # (auto) 0 10 ^3/uL (0-0.8); Hemoglobin 11.9 g/dL (12.2-16.2); Lymphocytes # (auto) 0.4 10 ^3/uL (0.4-5.4); Lymphocytes % (auto) 6.5 % (10.0-50.0); Mean Corpuscular Hemoglobin 30.9 pg (28.0-32.0); Mean Corpuscular Volume 88.1 fL (80.0-100.0); Monocytes # (auto) 0.3 10 ^3/uL (0-1.3); Monocytes % (auto) 4.5 % (0.0-12.0); Neutrophils # (auto) 5.3 10 ^3/uL (1.6-8.6); Neutrophils % (auto) 88.1 % (37.0-80.0); Nucleated Red Blood Cells % 0.2 %; Platelet Count (auto) 268 10^3/uL (140-450); Red Blood Cells 3.86 10^6/uL (4.0-5.20); Red Cell Distribution Width 15.4 % (11.8-14.3)
[2020-05-26] MEDS: PHENYLEPHRINE IV 250 ML IV SCH ×2 (10:40→13:50)
--- NOTE | 2020-05-26 11:30 | NUR ---
Dr. Shah at bedside Md attempting to contact family, number incorrect. Number to be saved when family calls. See md notes.
[2020-05-26] MEDS: BUDESONIDE (INHALATION) 0.5 MG/2 ML NEB NEB SCH ×2 (11:35→19:31)
--- NOTE | 2020-05-26 12:00 | NUR ---
*Unable to turn patient related to unstable hemodynamic status. Patient on PC 100% PEEP of 10 with small increase in pneumothorax from this a.m CXR. . Pox on 100% fi02 is 87-88%. Small pillow placed to side, not significant enough to assess sacrum/ backside. Wound care aware patient is too unstable to assess sacrum at this time. Addendum: 05/26/20 at 1400 by Nataly Galarza RN *incorrect patient
--- NOTE | 2020-05-26 12:00 | NUR ---
Blade Balancer Dr. Perez updated on patients status. See md orders/notes.
[2020-05-26] MEDS: NOREPINEPHRINE 8 MG/250ML KIT 250 ML IV SCH (13:50)
--- NOTE | 2020-05-26 14:37 | NUR ---
Family updated on pt status Family of NICKO FLAHERTY updated on patient's status and condition. All questions and concerns addressed. Son in law, with correct password verbalized understanding.
--- NOTE | 2020-05-26 15:14 | NUR ---
REMDESIVIR: PER PHARMACY, MEDICATION WILL BE HELD UNTIL GFR IS GREATER THAN OR EQUAL TO 30. PHARMACY TO FOLLOW UP DAILY.
--- NOTE | 2020-05-26 15:25 | NUR ---
Family Contacted to update on plan of care. Questions and concerns addressed. notified of new order for remdesevir and notified per pharmacy, kidney function is not wnl to administer medication but will be given when labs are appropriate. also notified of order for convalescent plasma. Questions and concerns addressed. Telephone consent obtained. Phone number updated as number listed has not been available. Gideon contact updated on NOK.
--- NOTE | 2020-05-26 18:50 | NUR ---
Family updated on pt status Family of NICKO FLAHERTY updated on patient's status and condition. All questions and concerns addressed. DaughterSade verbalized understanding.
--- NOTE | 2020-05-26 20:00 | NUR ---
SHIFT OPENING NOTE RECEIVED PATIENT INTUBATED AND SEDATED. VERSED AT 13, PROP AT 40, FENT AT 100. ETT 8 AND 21 AT THE LIP. PC R 22, PIP 24, FI02 80%, PEEP 14, POX 93%. OG TUBE CLAMPED. PLACEMENT VERIFIED WITH AUSCULTATION. HOPE CATH DRAINING URINE TO GRAVITY. RIGHT IJ INFUSING DRIPS. PHYSICAL ASSESSMENT COMPLETED, SEE INTERVENTIONS WILL CLOSELY MONITOR.
[2020-05-27] VITALS (80 sets, daily range): BP systolic 122–161; BP diastolic 58–82
[2020-05-27] MEDS: PHENYLEPHRINE IV 250 ML IV SCH ×3 (03:20→19:59)
--- NOTE | 2020-05-27 04:45 | NUR ---
MORNING HYGIENE CARE PARTIAL BED BATH PERFORMED TO PATIENT WITH CHG WIPES. BOLA CARE AND HOPE CARE DONE. PATIENT REPOSITIONED. TOLERATED IT WELL.
[2020-05-27 04:49] LABS: Basophils # (auto) 0 10 ^3/uL (0-0.2); Basophils % (auto) 0.4 % (0.0-2.0); Eosinophils # (auto) 0 10 ^3/uL (0-0.8); Hematocrit 36.2 % (36.0-46.0); Hemoglobin 12.6 g/dL (12.2-16.2); Lymphocytes # (auto) 0.4 10 ^3/uL (0.4-5.4); Lymphocytes % (auto) 7.3 % (10.0-50.0); Mean Corpuscular Hemoglobin 30.2 pg (28.0-32.0); Mean Corpuscular Hgb Conc. 34.7 g/dL (32.0-36.0); Monocytes # (auto) 0.3 10 ^3/uL (0-1.3); Monocytes % (auto) 4.6 % (0.0-12.0); Neutrophils # (auto) 5.4 10 ^3/uL (1.6-8.6); Neutrophils % (auto) 87.7 % (37.0-80.0); Nucleated Red Blood Cells % 0.2 %; Platelet Count (auto) 202 10^3/uL (140-450); Red Blood Cells 4.16 10^6/uL (4.0-5.20); Red Cell Distribution Width 15.4 % (11.8-14.3); White Blood Cell 6.1 10^3/uL (4.4-10.8)
[2020-05-27 05:00] LABS: Albumin 2.2 g/dL (3.4-5.0); Calcium 8.6 mg/dL (8.5-10.1); Potassium 3.6 mmol/L (3.5-5.1)
[2020-05-27 05:05] LABS: BUN/Creatinine Ratio 28.9; Bilirubin, Total 0.8 mg/dL (0.2-1.0); Total Protein 7.1 g/dL (6.4-8.2)
[2020-05-27] MEDS: SODIUM CHLOR 0.9% PF (SALINE LOCK) 10ML VIAL/SYR IV SCH ×3 (05:15→20:00)
[2020-05-27] MEDS: InsuLIN REG 1unit/0.01ml Soln (100units/ml) SC SCH ×4 (06:27→21:30)
[2020-05-27] MEDS: ACCU-CHEK COMFORT CURVE STRIP VI SCH ×4 (06:27→20:00)
--- NOTE | 2020-05-27 07:05 | NUR ---
END OF SHIFT REPORT GIVEN AND CARE ENDORSED TO MARTA MCKENZIE.
[2020-05-27] MEDS: cefTRIAXone 1GM/50ML D5W 50 ML IV SCH (08:47)
[2020-05-27] MEDS: DexAMETHasone SOD PHOS 10MG/1ML VIAL INJ IV SCH (08:47)
[2020-05-27] MEDS: PANTOPRAZOLE 40 MG/10 ML VIAL INJ IV SCH (08:47)
[2020-05-27] MEDS: DOXYCYCLINE 100MG/250ML 250 ML IV SCH ×2 (08:48→20:00)
[2020-05-27] MEDS: CHOLECALCIFEROL (VITD3) 2,000 UNIT CAP PO SCH (08:48)
[2020-05-27] MEDS: ASCORBIC ACID 1,000 MG TAB PO SCH (08:48)
[2020-05-27] MEDS: ENOXAPARIN SOD 150 MG/1 ML SYRINGE SC SCH (08:48)
[2020-05-27] MEDS: MULTIPLE VITAMIN TAB PO SCH (08:48)
[2020-05-27] MEDS: INSULIN LANTUS (GLARGINE) 1 /0.01ml (100units/ml) SC SCH ×2 (08:49→21:30)
--- NOTE | 2020-05-27 08:51 | NUR ---
Patient unstable for position change. Pox reading 89% on 80% fi02. Will continue to monitor. Heels off loaded and bilateral heels floating with rolled towels. Addendum: 05/27/20 at 0904 by Nataly Galarza RN Amended: Links added.
[2020-05-27] MEDS: MIDAZOLAM DRIP 50 mg/50mL 50 ML IV SCH ×3 (09:47→18:05)
[2020-05-27] MEDS: BUDESONIDE (INHALATION) 0.5 MG/2 ML NEB NEB SCH ×2 (10:00→19:00)
--- NOTE | 2020-05-27 10:00 | NUR ---
*Unable to turn patient related to unstable hemodynamic status. Patient on PC, peep of 14 Fi02-80%. Pox 90%. Unable to assess sacrum at this time.
--- NOTE | 2020-05-27 12:00 | NUR ---
Position change not tolerated Attempted to reposition patient to left side. Patient desaturated to 76%, noted to bite down on ETT. 100% Supplement o2 provided, R.t paged for bite block. Sedation increased. Patient 02 saturations slowly increased back to 90% after 15min. Unable to assess sacrum. Pillow place was removed and patient placed back in supine position.
--- NOTE | 2020-05-27 12:15 | NUR ---
MD Rounds Dr. Shah updated on patient status. MD aware that patient is not tolerating position change at this time. See md orders/ notes.
[2020-05-27] MEDS: PROPOFOL 100 ML IV SCH ×3 (13:56→20:00)
--- NOTE | 2020-05-27 13:56 | NUR ---
Family updated on pt status Family of NICKO FLAHERTY updated on patient's status and condition. All questions and concerns addressed. Daughter verbalized understanding.
--- NOTE | 2020-05-27 14:00 | NUR ---
Position change not tolerated Patients pox trending 88-89%. Position change held due to being unstable. Patient remains on PC with Peep of 14, 80% fi02. Will continue to monitor/
[2020-05-27] MEDS: NOREPINEPHRINE 8 MG/250ML KIT 250 ML IV SCH (15:00)
[2020-05-27] MEDS ORDERED: REMDESIVIR PER PHARMACY 0 ML IV SCH (15:30)
--- NOTE | 2020-05-27 16:00 | NUR ---
POSITION CHANGE NOT TOLERATED Attempt to reposition as pox reading was 91-92%. Patient turned to left side. Pox noted to decrease as low as 57%. Patient moderately sedated. Not biting down on ETT. Sacrum assessed and remains intact with optifoam in place. Patient placed back in supine position.
[2020-05-27] MEDS: fentaNYL Drip 2500mCg/250mlNS 250 ML IV SCH (18:04)
--- NOTE | 2020-05-27 18:05 | NUR ---
Patients blood sugar reading 420. Protocol followed, notified. New orders in place.
[2020-05-27] MEDS ORDERED: InsuLIN REG 1unit/0.01ml Soln (100units/ml) SC ONE (18:15)
--- NOTE | 2020-05-27 20:00 | NUR ---
SHIFT OPENING NOTE RECEIVED PATIENT INTUBATED AND SEDATED. VERSED AT 13, PROP AT 50, FENT AT 100. ETT 8 AND 21 AT THE LIP. PC R 22, PIP 24, FI02 80%, PEEP 14, POX 95%. OG TUBE CLAMPED. PLACEMENT VERIFIED WITH AUSCULTATION. HOPE CATH DRAINING URINE TO GRAVITY. RIGHT IJ INFUSING DRIPS. PHYSICAL ASSESSMENT COMPLETED, SEE INTERVENTIONS WILL CLOSELY MONITOR.
[2020-05-28] VITALS (100 sets, daily range): BP systolic 83–185; BP diastolic 46–82
[2020-05-28] MEDS: PHENYLEPHRINE IV 250 ML IV SCH ×3 (00:16→21:00)
--- NOTE | 2020-05-28 04:00 | NUR ---
MORNING HYGIENE CARE PARTIAL BATH PROVIDED WIT CHG WIPES. PILLOW CASES PLACED UNDER FOLDS. NEW GOWN PLACED. PATIENT HEMODYNAMICALLY UNSTABLE FOR TURNS. RAPIDLY DESATS. ORAL CARE, BOLA CARE AND HOPE CARE DONE.
[2020-05-28] MEDS: SODIUM CHLOR 0.9% PF (SALINE LOCK) 10ML VIAL/SYR IV SCH ×3 (05:54→22:02)
[2020-05-28] MEDS: ACCU-CHEK COMFORT CURVE STRIP VI SCH ×4 (05:55→21:59)
[2020-05-28] MEDS: InsuLIN REG 1unit/0.01ml Soln (100units/ml) SC SCH ×4 (05:56→21:59)
--- NOTE | 2020-05-28 07:10 | NUR ---
END OF SHIFT REPORT GIVEN AND CARE ENDORSED TO WINSTON MCKENZIE.
[2020-05-28 07:16] LABS: Basophils # (auto) 0 10 ^3/uL (0-0.2); Basophils % (auto) 0.2 % (0.0-2.0); Eosinophils # (auto) 0 10 ^3/uL (0-0.8); Eosinophils % (auto) 0.1 % (0.0-7.0); Hematocrit 37.4 % (36.0-46.0); Hemoglobin 12.7 g/dL (12.2-16.2); Lymphocytes # (auto) 0.6 10 ^3/uL (0.4-5.4); Lymphocytes % (auto) 6.8 % (10.0-50.0); Mean Corpuscular Hemoglobin 30.1 pg (28.0-32.0); Mean Corpuscular Volume 88.6 fL (80.0-100.0); Monocytes # (auto) 0.3 10 ^3/uL (0-1.3); Monocytes % (auto) 3.1 % (0.0-12.0); Neutrophils # (auto) 8.1 10 ^3/uL (1.6-8.6); Neutrophils % (auto) 89.8 % (37.0-80.0); Nucleated Red Blood Cells % 0.2 %; Platelet Count (auto) 231 10^3/uL (140-450); Red Blood Cells 4.23 10^6/uL (4.0-5.20); Red Cell Distribution Width 15.3 % (11.8-14.3)
[2020-05-28 07:24] LABS: Chloride 108 mmol/L (98-107); Potassium 3.9 mmol/L (3.5-5.1); Sodium 140 mmol/L (136-145)
[2020-05-28 07:38] LABS: Alanine Aminotransferase 43 U/L (13-56); Albumin 2.1 g/dL (3.4-5.0); Alkaline Phosphatase 53 U/L (45-117); Anion Gap 8 (5-15); Aspartate Aminotransferase 61 U/L (15-37); BUN/Creatinine Ratio 34.9; Bilirubin, Total 0.8 mg/dL (0.2-1.0); Blood Urea Nitrogen 61 mg/dL (7-18); Calcium 9.4 mg/dL (8.5-10.1); Carbon Dioxide 24 mmol/L (21-32); GFR African American 39 mL/min; GFR Non-African American 32 mL/min; Glucose 324 mg/dL (74-106); Lactate Dehydrogenase 705 U/L (84-246); Total Protein 7.1 g/dL (6.4-8.2)
[2020-05-28 07:41] LABS: CRP High Sensitivity > 19 mg/dL (< 0.3)
--- NOTE | 2020-05-28 08:00 | NUR ---
PT ROUNDING PT REMAINS SEDATED AND INTUBATED. NO DISTRESS NOTED. BREATHING EVEN AND UNLABORED. COMPLETE PHYSICAL ASSESSMENT UNDER INTERVENTIONS. SEE IV SPREADSHEET FOR TITRATION. BED LOCKED FOR SAFETY. ALARMS AND PT CONNECTED TO MONITOR.
[2020-05-28] MEDS: PROPOFOL 100 ML IV SCH ×4 (09:25→23:14)
[2020-05-28] MEDS: MIDAZOLAM DRIP 50 mg/50mL 50 ML IV SCH ×3 (09:26→19:29)
[2020-05-28] MEDS: PANTOPRAZOLE 40 MG/10 ML VIAL INJ IV SCH (09:31)
[2020-05-28] MEDS: cefTRIAXone 1GM/50ML D5W 50 ML IV SCH (09:31)
[2020-05-28] MEDS: DexAMETHasone SOD PHOS 10MG/1ML VIAL INJ IV SCH (09:32)
[2020-05-28] MEDS: DOXYCYCLINE 100MG/250ML 250 ML IV SCH ×2 (09:32→22:01)
[2020-05-28] MEDS: CHOLECALCIFEROL (VITD3) 2,000 UNIT CAP PO SCH (09:33)
[2020-05-28] MEDS: MULTIPLE VITAMIN TAB PO SCH (09:33)
[2020-05-28] MEDS: ASCORBIC ACID 1,000 MG TAB PO SCH (09:33)
[2020-05-28] MEDS: ENOXAPARIN SOD 150 MG/1 ML SYRINGE SC SCH (09:34)
[2020-05-28] MEDS: BUDESONIDE (INHALATION) 0.5 MG/2 ML NEB NEB SCH ×2 (10:00→22:00)
[2020-05-28] MEDS: INSULIN LANTUS (GLARGINE) 1 /0.01ml (100units/ml) SC SCH ×2 (10:29→21:57)
--- NOTE | 2020-05-28 11:00 | NUR ---
RESP FI02 INCREASED TO 100% DUE TO ABG RESULTS.
--- NOTE | 2020-05-28 11:12 | NUR ---
IN UNIT COREY, ROUNDING WITH PT. NEW ORDERS RECEIVED. ATTEMPTED TO CALL AND CALL WENT STRAIGHT TO [employer]. WILL INFORM RT FOR VENT CHANGE.
--- NOTE | 2020-05-28 12:38 | NUR ---
Nutrition Followup Notes Wt: 163.1 kg Pt is intubated sedated with propofol @ 40.687 ml/hr providing 1072 kcals form fats. pt is currently NPO and to begin EN support per nursing Est energy needs 0236-4047 kcal (11-13 kcal/kg BW 166.1kg) Est protein needs 59-77g (1-1.3g/kg IBW 59kg) Will monitor and reassess prn. LABS: BUN 61 H CREAT 1.75 H GLU 234 H ALB 2.1 L GI: Pt has no BM reported per RN doc BS: 10 high risk. Refer to wound assessment report for further details PES: Altered nutrition related labs aeb pt with elevated RFTs, hyperglycemia, hypoalb, elevated LFTs r/t current and chronic medical conditions Comments: Will continue to monitor NPO status, EN tolerance, skin status, pertinent labs and weight trends. Will f/u in 2-3 days Rec: 1) refer pt to OPD on DC. 2) Continue current plan of care. 3) Consider Glucerna 1.2 at a goal rate of 30 ml at current rate of propofol, increase rate if propofol decreases 4) advance diet as medically feasible. 5) consider prostat 1 packet BID as RFT improve
--- NOTE | 2020-05-28 13:00 | NUR ---
ORAL CARE PT ROUNDING. PT PARTIALLY TURNED, DESATURATES WITH LARGE TURNING.
[2020-05-28] MEDS ORDERED: REMDESIVIR 200 MG in NS 210ml LOADING DOSE ADULT IV ONE (15:00)
[2020-05-28] MEDS: NOREPINEPHRINE 8 MG/250ML KIT 250 ML IV SCH ×2 (15:00→22:36)
--- NOTE | 2020-05-28 15:00 | NUR ---
DAUGHTER CALLED PW PROVIDED. UPDATE GIVEN TO DAUGHTER. INFORMED OF FIO2 TITRATION AND PLANNED REMDESIVIR. NO FURTHER QUESTIONS.
[2020-05-28] MEDS: fentaNYL Drip 2500mCg/250mlNS 250 ML IV SCH (16:00)
--- NOTE | 2020-05-28 19:30 | NUR ---
CLOSING NOTE REPORT GIVEN TO NOC RN. PT REMAINS STABLE, NO CHANGES. ALL ALARMS IN PLACE.
[2020-05-29] VITALS (91 sets, daily range): BP systolic 94–166; BP diastolic 49–83
[2020-05-29] MEDS: PROPOFOL 100 ML IV SCH ×4 (01:29→19:39)
[2020-05-29] MEDS: MIDAZOLAM DRIP 50 mg/50mL 50 ML IV SCH ×4 (01:31→23:38)
[2020-05-29] MEDS: PHENYLEPHRINE IV 250 ML IV SCH ×3 (05:20→22:00)
[2020-05-29] MEDS: InsuLIN REG 1unit/0.01ml Soln (100units/ml) SC SCH ×4 (06:35→23:16)
[2020-05-29] MEDS: SODIUM CHLOR 0.9% PF (SALINE LOCK) 10ML VIAL/SYR IV SCH ×3 (06:38→23:15)
[2020-05-29] MEDS: INSULIN LANTUS (GLARGINE) 1 /0.01ml (100units/ml) SC SCH ×2 (06:52→23:17)
[2020-05-29] MEDS: ACCU-CHEK COMFORT CURVE STRIP VI SCH ×4 (06:52→23:18)
--- NOTE | 2020-05-29 07:30 | NUR ---
OPENING SHIFT NOTE Received report from NOC RNDeysi. Assumed care of patient. Patient is currently on Novel Respiratory Isolation for COVID-19. Received patient lying in bed, intubated and sedated connected to bedside monitor with alarms in place. Patient intubated with ET 8.0 @ 21cm, PC 24 R22 fiO2 100% P14 with O2 sats >92%. Patient with Right IJ TLC with Versed @14mg/hr, Propofol @50mcg/kg/hr and Fentanyl @125mcg/hr. CVP running at 11. Mir draining yellow UOP. See physical assessment. Will continue to monitor.
[2020-05-29 08:34] LABS: BUN/Creatinine Ratio 34.3; Calcium 9.6 mg/dL (8.5-10.1)
[2020-05-29] MEDS: fentaNYL Drip 2500mCg/250mlNS 250 ML IV SCH ×2 (09:40→18:00)
[2020-05-29] MEDS: cefTRIAXone 1GM/50ML D5W 50 ML IV SCH (09:48)
--- NOTE | 2020-05-29 10:00 | NUR ---
REPOSITIONING Unable to reposition patient due to patient dropping O2 sats to 70s.
--- NOTE | 2020-05-29 11:00 | NUR ---
MD Dr Mckay to see patient.
[2020-05-29] MEDS: DexAMETHasone SOD PHOS 10MG/1ML VIAL INJ IV SCH (11:34)
[2020-05-29] MEDS: MULTIPLE VITAMIN TAB PO SCH (11:35)
[2020-05-29] MEDS: ASCORBIC ACID 1,000 MG TAB PO SCH (11:35)
[2020-05-29] MEDS: PANTOPRAZOLE 40 MG/10 ML VIAL INJ IV SCH (11:35)
[2020-05-29] MEDS: CHOLECALCIFEROL (VITD3) 2,000 UNIT CAP PO SCH (11:35)
[2020-05-29] MEDS: ENOXAPARIN SOD 150 MG/1 ML SYRINGE SC SCH (11:36)
[2020-05-29] MEDS ORDERED: Glucerna 1.2 Cal 1Liter BOTTLE GT SCH (12:00)
[2020-05-29] MEDS ORDERED: ZINC SULFATE 220mg CAP or TAB PO ONE (12:00)
--- NOTE | 2020-05-29 12:00 | NUR ---
REPOSITIONING Unable to reposition patient due to patient dropping O2 sats to 70s.
--- NOTE | 2020-05-29 14:00 | NUR ---
REPOSITIONING Unable to reposition patient due to patient dropping O2 sats to 70s.
[2020-05-29] MEDS: REMDESIVIR 100 MG in SODIUM CHL 0.9% 250 ML IV SCH (14:54)
[2020-05-29] MEDS: METOCLOPRAMIDE HCL 5MG/ml INJ 2ml VIAL IV SCH ×2 (14:54→23:15)
--- NOTE | 2020-05-29 16:00 | NUR ---
REPOSITIONING Unable to reposition patient due to patient dropping O2 sats to 70s.
--- NOTE | 2020-05-29 18:00 | NUR ---
REPOSITIONING Unable to reposition patient due to patient dropping O2 sats to 70s.
[2020-05-29] MEDS: BUDESONIDE (INHALATION) 0.5 MG/2 ML NEB NEB SCH (18:39)
--- NOTE | 2020-05-29 19:00 | NUR ---
END OF SHIFT NOTE Patient remains intubated and sedated on Versed at 12mg/hr, Fentanyl at 125mcg/hr, and Propofol at 20mcg/kg/hr. No s/s of distress noted. Patient with RT IJ TLC, all ports flush, CVP port returns blood. CVP at 12. Mir draining yellow UOP, 1100ml output throughout shift. Report given to JAZ MCKENZIE, Deysi.
--- NOTE | 2020-05-29 19:15 | NUR ---
Open Shift Note intubated PC 24 FIO2 100% with oxygen Sat of 93% patient is sedated on Versed at 12, Fentanyl at 125, and Propofol at 20 Patient with RT IJ T all ports flush, CVP port returns blood Patient is resting quietly with out s/s of distress at this time.
--- NOTE | 2020-05-29 20:00 | NUR ---
Repositioning Unable to reposition patient as oxygenation drops to the low 70's high 60's with very slow recovery.
--- NOTE | 2020-05-29 22:00 | NUR ---
Repositioning Unable to reposition patient as oxygenation drops to the low 70's high 60's with very slow recovery.
[2020-05-29] MEDS: SODIUM CHLORIDE 0.9% 1,000 ML IV SCH (23:19)
[2020-05-30] VITALS (97 sets, daily range): BP systolic 91–143; BP diastolic 52–75
--- NOTE | 2020-05-30 | NUR ---
Repositioning Unable to reposition patient as oxygenation drops to the low 70's high 60's with very slow recovery.
[2020-05-30] MEDS: PROPOFOL 100 ML IV SCH (00:26)
--- NOTE | 2020-05-30 02:00 | NUR ---
Repositioning Unable to reposition patient as oxygenation drops to the low 70's high 60's with very slow recovery.
--- NOTE | 2020-05-30 04:00 | NUR ---
Repositioning Unable to reposition patient as oxygenation drops to the low 70's high 60's with very slow recovery.
[2020-05-30] MEDS: fentaNYL Drip 2500mCg/250mlNS 250 ML IV SCH ×2 (04:01→23:07)
[2020-05-30 04:02] LABS: Basophils # (auto) 0 10 ^3/uL (0-0.2); Basophils % (auto) 0.4 % (0.0-2.0); Eosinophils # (auto) 0 10 ^3/uL (0-0.8); Eosinophils % (auto) 0.4 % (0.0-7.0); Hematocrit 40.9 % (36.0-46.0); Hemoglobin 13.4 g/dL (12.2-16.2); Lymphocytes % (auto) 7.2 % (10.0-50.0); Mean Corpuscular Hemoglobin 29.5 pg (28.0-32.0); Mean Corpuscular Hgb Conc. 32.7 g/dL (32.0-36.0); Mean Corpuscular Volume 90.1 fL (80.0-100.0); Monocytes # (auto) 0.5 10 ^3/uL (0-1.3); Monocytes % (auto) 3.5 % (0.0-12.0); Neutrophils % (auto) 88.5 % (37.0-80.0); Nucleated Red Blood Cells % 0.9 %; Platelet Count (auto) 255 10^3/uL (140-450); Red Blood Cells 4.54 10^6/uL (4.0-5.20); Red Cell Distribution Width 15.8 % (11.8-14.3); White Blood Cell 13.6 10^3/uL (4.4-10.8)
[2020-05-30] MEDS: MIDAZOLAM DRIP 50 mg/50mL 50 ML IV SCH ×2 (04:03→18:50)
[2020-05-30 04:21] LABS: Potassium 4.4 mmol/L (3.5-5.1)
[2020-05-30 04:26] LABS: Bilirubin, Total 0.7 mg/dL (0.2-1.0); Calcium 10.4 mg/dL (8.5-10.1); Total Protein 7.4 g/dL (6.4-8.2)
--- NOTE | 2020-05-30 04:40 | NUR ---
Morning Care Minimal Morning care provided CHG wipe bath, gown change, rober area care, oral care, provided with moderate distress.
--- NOTE | 2020-05-30 04:45 | NUR ---
Oxygen Desaturation while providing the rober area care, patient desaturated to 64% patient recovery time approx 1 hour
[2020-05-30] MEDS: SODIUM CHLORIDE 0.9% 1,000 ML IV SCH ×2 (05:45→15:39)
[2020-05-30] MEDS: INSULIN LANTUS (GLARGINE) 1 /0.01ml (100units/ml) SC SCH ×3 (06:17→22:58)
[2020-05-30] MEDS: InsuLIN REG 1unit/0.01ml Soln (100units/ml) SC SCH ×5 (06:18→23:13)
[2020-05-30] MEDS: SODIUM CHLOR 0.9% PF (SALINE LOCK) 10ML VIAL/SYR IV SCH ×3 (06:19→22:58)
[2020-05-30] MEDS: METOCLOPRAMIDE HCL 5MG/ml INJ 2ml VIAL IV SCH ×3 (06:19→22:58)
[2020-05-30] MEDS: ACCU-CHEK COMFORT CURVE STRIP VI SCH ×4 (06:19→22:58)
[2020-05-30] MEDS: PHENYLEPHRINE IV 250 ML IV SCH ×2 (06:20→14:40)
--- NOTE | 2020-05-30 07:30 | NUR ---
OPENING SHIFT NOTE Received report from NOC RNDeysi. Assumed care of patient. Patient is currently on Novel Respiratory Isolation for COVID-19. Received patient lying in bed, intubated and sedated connected to bedside monitor with alarms in place. Patient intubated with ET 8.0 @ 21cm, PC 24 R22 fiO2 100% P14 with O2 sats >92%. Patient with Right IJ TLC with Versed @12mg/hr, Propofol @20mcg/kg/hr and Fentanyl @125mcg/hr. CVP running at 12. Mir draining yellow UOP. See physical assessment. Will continue to monitor.
--- NOTE | 2020-05-30 07:36 | NUR ---
Shift END Note Provided Shift report and Endorsed care to Agnes MCKENZIE.
--- NOTE | 2020-05-30 08:00 | NUR ---
REPOSITIONING Unable to reposition patient due to patient dropping O2 sats to 70s.
--- NOTE | 2020-05-30 08:40 | NUR ---
FAMILY T/C from patient's . Password verified. Updated on patient status and plan of care. All questions addressed at this time.
[2020-05-30] MEDS: MULTIPLE VITAMIN TAB PO SCH (09:21)
[2020-05-30] MEDS: PANTOPRAZOLE 40 MG/10 ML VIAL INJ IV SCH (09:21)
[2020-05-30] MEDS: DexAMETHasone SOD PHOS 10MG/1ML VIAL INJ IV SCH (09:21)
[2020-05-30] MEDS: CHOLECALCIFEROL (VITD3) 2,000 UNIT CAP PO SCH (09:22)
[2020-05-30] MEDS: ASCORBIC ACID 1,000 MG TAB PO SCH (09:22)
[2020-05-30] MEDS: ENOXAPARIN SOD 150 MG/1 ML SYRINGE SC SCH (09:22)
[2020-05-30] MEDS: cefTRIAXone 1GM/50ML D5W 50 ML IV SCH (09:27)
[2020-05-30] MEDS ORDERED: Glucerna 1.2 Cal 1Liter BOTTLE GT SCH (09:30)
[2020-05-30] MEDS ORDERED: ZINC SULFATE 220mg CAP or TAB PO SCH (10:00)
--- NOTE | 2020-05-30 10:00 | NUR ---
REPOSITIONING Unable to reposition patient due to patient dropping O2 sats to 70s.
--- NOTE | 2020-05-30 10:30 | NUR ---
MD Dr Shah to see patient. Updated on patient status. No new orders received.
--- NOTE | 2020-05-30 12:00 | NUR ---
REPOSITIONING Unable to reposition patient due to patient dropping O2 sats to 70s. Wound care nurse, Jennifer, aware.
--- NOTE | 2020-05-30 13:00 | NUR ---
Nutrition Followup Notes Wt: 164.1 kg Pt is intubated sedated with propofol @ 4.97 ml/hr providing 131 kcals form fats. Pt is currently NPO and to begin EN support per nursing but is with no TF this morning when rounded. Est energy needs 4494-2874 kcal (11-13 kcal/kg BW 166.1kg) Est protein needs 59-77g (1-1.3g/kg IBW 59kg) Will monitor and reassess prn. LABS: BUN 84 H CREAT 2.05 H GLU 234 H ALB 2.0 L GI: Pt has no BM reported per RN doc BS: 10 high risk. Refer to wound assessment report for further details PES: Altered nutrition related labs aeb pt with elevated RFTs, hyperglycemia, hypoalb, elevated LFTs r/t current and chronic medical conditions Comments: Will continue to monitor NPO status, EN tolerance, skin status, pertinent labs and weight trends. Will f/u in 2-3 days Rec: 1) Refer pt to OPD on DC. 2) Continue current plan of care. 3) Consider Glucerna 1.2 at a goal rate of 30 ml at current rate of propofol, increase rate if propofol decreases 4) Advance diet as medically feasible. 5) Consider prostat 1 packet BID as RFT improve
--- NOTE | 2020-05-30 14:00 | NUR ---
REPOSITIONING Unable to reposition patient due to patient dropping O2 sats to 70s.
--- NOTE | 2020-05-30 14:30 | NUR ---
FAMILY T/C from patient's family. Verified password. Updated on plan of care and patient status. All questions addressed at this time.
[2020-05-30] MEDS: NOREPINEPHRINE 8 MG/250ML KIT 250 ML IV SCH (15:00)
--- NOTE | 2020-05-30 15:00 | NUR ---
TUBE FEEDING Initiated tube feeds of Glucerna 1.2 @ 10ml/hr with goal rate of 30ml/hr per dietary recommendations. Tube placement verified by auscultation and no residuals noted.
[2020-05-30] MEDS: REMDESIVIR 100 MG in SODIUM CHL 0.9% 250 ML IV SCH (15:39)
--- NOTE | 2020-05-30 16:00 | NUR ---
REPOSITIONING Unable to reposition patient due to patient dropping O2 sats to 70s.
--- NOTE | 2020-05-30 17:24 | NUR ---
FAMILY T/C from patient's niece, Rosy. Verified password. Updated on patient status and plan of care. All questions addressed at this time. 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
--- NOTE | 2020-05-30 17:30 | NUR ---
TUBE FEEDING Patient with residuals <5ml. Increased tube feeding to 20ml/hr. Goal of 30ml/hr.
--- NOTE | 2020-05-30 18:00 | NUR ---
REPOSITIONING Unable to reposition patient due to patient dropping O2 sats to 70s.
--- NOTE | 2020-05-30 19:06 | NUR ---
END OF SHIFT NOTE Patient remains intubated and sedated on Versed at 10mg/hr and Fentanyl at 125mcg/hr. No s/s of distress noted. Patient with RT IJ TLC, all ports flush, CVP port returns blood. CVP at 10. Tube feedings of Glucerna running at 20ml/hr. Mir draining yellow UOP with sediment noted, 450ml output throughout shift. Report given to Mary SEBASTIAN RN.
[2020-05-30] MEDS: BUDESONIDE (INHALATION) 0.5 MG/2 ML NEB NEB SCH (19:15)
--- NOTE | 2020-05-30 19:15 | NUR ---
Opening Shift Note Assumed care of patient intubated and sedated, current vent settings : PC with pressure 24, rate 22, Fio2 100%, peep 14 with Spo2 currently at 95%, tolerating vent well. No S/S of distress or pain noted, richey cath draining to gravity with dark yellow urine. Current drips versed @ 10, fentanyl @ 125, and NS @100%, current feeding with Glucerna 1.2 @ 20ml hr. Call light within reach and bed low to floor, HOB >30 degrees, will continue to monitor for changes Q1hr and PRN.
--- NOTE | 2020-05-30 20:20 | NUR ---
Family updated on pt status Family of NICKO FLAHERTY updated on patient's status and condition with password verifcation. All questions and concerns addressed. Patients sister verbalized understanding.
--- NOTE | 2020-05-30 22:00 | NUR ---
REPOSITIONING Unable to reposition patient due to patient dropping O2 sats to 70s.
[2020-05-31] VITALS (15 sets, daily range): BP systolic 34–127; BP diastolic 16–78
--- NOTE | 2020-05-31 00:30 | NUR ---
AM care notes Patien given bed bath using CHG wipes, warm soapy wash cloths used to clean face and periarea d/t patient have moderate amount of BM soft brown, linen and gown changed, Skin reassessed at this time and no changes noted, continue monitor.
--- NOTE | 2020-05-31 01:15 | NUR ---
Patient desat to 68% and was tachypneic in the high 40"s, fighting the vent, patient was suctioned and mild secretions returned it appeared patient needed more sedation, sedation increased and RT notified will continue to monitor.
--- NOTE | 2020-05-31 01:45 | NUR ---
Patient continues to be tachypneic and Spo2 at 69% with 100% fio2, propofol initiated per protocol, will continue to monitor.
[2020-05-31] MEDS: NOREPINEPHRINE 8 MG/250ML KIT 250 ML IV SCH (02:05)
--- NOTE | 2020-05-31 02:54 | NUR ---
Unable to leave message for daughter Lucila d/t voicemail box full, so contacted patients , Mr Joyner, with password verification, updated him on patients current status d/t Spo2 @ 51% with Fio2 at 100% and patient having heart irregularities despite being on pressors. Mr Joyner said ok, thank you and keep him updated.
--- NOTE | 2020-05-31 03:02 | NUR ---
Patient given atropine x2 by charge nurse d/t sudden bradycardia and hypotension, continue to monitor.
[2020-05-31] MEDS ORDERED: DOPamine 1600MCG/ML D5W 250 ML IV ONE (03:06)
--- NOTE | 2020-05-31 03:07 | NUR ---
Hospitalist paged d/t low BP currently 56/32 and patient maxed out on levophed, awaiting response.
--- NOTE | 2020-05-31 03:16 | NUR ---
Spoke with hospitalist Michael regarding patients low blood pressure despite using levophed drip, episode of bradycardia, and O2 sats in the 50's with 100 % Fio2, new orders received for NS bolus 500ml x1 and begin dopamine drip.
[2020-05-31] MEDS ORDERED: SODIUM CHLORIDE 0.9% 500 ML IV ONE (03:30)
[2020-05-31] MEDS ORDERED: ATROPINE SULF 1 MG/10ml SYR IV ONE ×2 (03:30)
[2020-05-31] MEDS ORDERED: DOPamine 1600MCG/ML D5W 250 ML IV SCH (03:30)
--- NOTE | 2020-05-31 03:43 | NUR ---
Code blue called d/t patient having extreme bradycardia, hypoxia, and hypotensive
--- NOTE | 2020-05-31 03:43 | NUR ---
See code blue sheet.
[2020-05-31] MEDS ORDERED: EPINEPHrine HCL 1 MG/10 ML SYRG ONE (03:59)
--- NOTE | 2020-05-31 03:59 | NUR ---
Spoke with Mr Joyner with password verification and made aware patient is being performed CPR at this time d/t going into cardiac arrest, Mr Joyner states to keep him updated and he will contact his daughter.
[2020-05-31] MEDS ORDERED: SODIUM BICARBONATE 8.4% INJ 50ML SYRINGE ONE (04:03)
--- NOTE | 2020-05-31 04:15 | NUR ---
Spoke with Mr Joyner and made aware patient despite performing CPR, he states he doesnt have a mortuary and his daughter will take care of it, states he will come with his daugther to see his .
--- NOTE | 2020-05-31 04:21 | NUR ---
Spoke with Guerita from [facility] body is released, referral #[id number].
--- NOTE | 2020-05-31 04:36 | NUR ---
Spoke with Sylvia from the coroners office and states someone will be calling back, awaiting response.
--- NOTE | 2020-05-31 05:00 | NUR ---
Patients daughters and at bedside with patient.
--- NOTE | 2020-05-31 05:10 | NUR ---
Spoke with Deni Smith from the coroners office and states he releases the body and gave no case number at this time.
--- NOTE | 2020-05-31 07:49 | NUR ---
Code blue documentation given to retail warehouse supervisor d/t this user does not have access.
== END 2020-05-31 06:40 | DRG 130 ==
LOC: EDUNIT# 18:09 → ER 18:09 → EDBD 18:09 → TELE 18:10 → TELE-EAST 05-24 02:43 → DOU IN ICU 05-24 14:03
PROVIDERS: ADMIT Nurse Practitioner Family; ATTEND Internal Medicine
PROC: 5A09357 Assistance with Respiratory Ventilation, Less than 24 Consecutive Hours, Continuous Positive Airway Pressure (ICD-10-PCS; 2020-05-23)
PROC: 5A1955Z Respiratory Ventilation, Greater than 96 Consecutive Hours (ICD-10-PCS; principal; 2020-05-24)
PROC: 0BH17EZ Insertion of Endotracheal Airway into Trachea, Via Natural or Artificial Opening (ICD-10-PCS; 2020-05-24)
PROC: 5A09357 Assistance with Respiratory Ventilation, Less than 24 Consecutive Hours, Continuous Positive Airway Pressure (ICD-10-PCS; 2020-05-24)
PROC: XW033E5 Introduction of Remdesivir Anti-infective into Peripheral Vein, Percutaneous Approach, New Technology Group 5 (ICD-10-PCS; 2020-05-27)
PROC: 5A12012 Performance of Cardiac Output, Single, Manual (ICD-10-PCS; 2020-05-31)
DX: U07.1 COVID-19 (principal); J12.89 Other viral pneumonia; J96.01 Acute respiratory failure with hypoxia; N17.0 Acute kidney failure with tubular necrosis; E66.01 Morbid (severe) obesity due to excess calories; R79.89 Other specified abnormal findings of blood chemistry; R57.1 Hypovolemic shock; I12.9 Hypertensive chronic kidney disease with stage 1 through stage 4 chronic kidney disease, or unspecified chronic kidney disease; N18.9 Chronic kidney disease, unspecified; Z68.43 Body mass index [BMI] 50.0-59.9, adult; Z99.11 Dependence on respirator [ventilator] status; E11.22 Type 2 diabetes mellitus with diabetic chronic kidney disease; I46.9 Cardiac arrest, cause unspecified
CPT/HCPCS: 36415; 36600; 51702; 71045; 76775; 80048; 80053; 81001; 82306; 82570; 82728; 82805; 82962; 83036; 83605; 83615; 83735; 83880; 84156; 84300; 84443; 84484; 85025; 85379; 86141; 86850; 86900; 86901; 87040; 87426; 93005; 94002; 94003; 94640; 94660; 96365; 96366; 96375; 99291; C9113; G0378; J0330; J0696; J1100; J1815; J2250; J2704; J3490